=== PATIENT | female | born 1955 | race Caucasian/White ===

== ENCOUNTER 2016-11-02 11:04 | Emergency (ER) | payer OTHER ==
[2016-11-02 11:17] VITALS: BP 148/99
[2016-11-02] MEDS ORDERED: Lidocaine 1% 20 ML MDV INJECT ONE (11:42)
[2016-11-02] MEDS ORDERED: Bacitracin Oint 1 GM U/D Packet TOP ONE (12:16)
--- NOTE | 2016-11-02 12:17 | EDM.PDOC ---
ED HPI GENERAL MEDICAL PROBLEM - General Chief Complaint: Laceration Stated Complaint: LT THUMB/HAND SUTURES Time Seen by Provider: 11/02/16 12:00 Source of Information: Reports: Patient History Limitations: Reports: No Limitations - History of Present Illness INITIAL COMMENTS - FREE TEXT/NARRATIVE: Cherry is a 60 year old female who presents to the ED today with c/o hand laceration after trying to stop boat handle pulled from spinning. Patient denies any other injury, DT is up to date. - Related Data Allergies Allergy/AdvReac Type Severity Reaction Status Date / Time dexlansoprazole Allergy Severe Difficulty Verified 11/02/16 11:20 [From Dexilant] Breathing Latex, Natural Rubber Allergy Intermediate Rash Verified 11/02/16 11:21 Sulfa (Sulfonamide Allergy Mild Vomiting Verified 11/02/16 11:19 Antibiotics) Home Meds: Home Meds Ranitidine [Zantac] 150 mg PO BEDTIME 11/02/16 [History] Past Medical History HEENT History: Reports: Allergic Rhinitis Respiratory History: Reports: Asthma Musculoskeletal History: Reports: Osteoarthritis Neurological History: Reports: Headaches, Chronic, Migraines Dermatologic History: Reports: Psoriasis Social & Family History - Tobacco Use Smoking Status *Q: Never Smoker Second Hand Smoke Exposure: No - Caffeine Use Caffeine Use: Reports: Tea - Recreational Drug Use Recreational Drug Use: No ED ROS GENERAL - Review of Systems Review Of Systems: ROS reveals no pertinent complaints other than HPI. ED EXAM, SKIN/RASH Exam: See Below Exam Limited By: No Limitations General Appearance: Alert, WD/WN, No Apparent Distress Head: Atraumatic Respiratory/Chest: No Respiratory Distress Cardiovascular: Regular Rate, Rhythm Extremities: Normal Inspection, Normal Range of Motion, Normal Capillary Refill Neurological: Alert, Oriented Psychiatric: Normal Affect, Normal Mood Skin: Warm, Dry, Other ( 3 cm V shaped laceration to right hand, dorsal aspect just beneath right thumb, no tendon involvement, no foreign body) ED SKIN PROCEDURES - Laceration/Wound Repair Right Upper Hand Appearance: Subcutaneous Distal NVT: Neuro & Vascular Intact, No Tendon Injury Anesthetic Type: Local Local Anesthesia - Lidocaine (Xylocaine): 1% Plain Skin Prep: Chlorhexidine (Hibiciens), Saline Exploration/Debridement/Repair: Wound Explored, No Foreign Material Found Closed with: Sutures Suture Size: other (5-0) Suture Type: Prolene # of Sutures: 9 Course - Vital Signs Text/Narrative:: Cherry is a delightful 60 year old female who presents to the ED today with right hand laceration, please refer to HPI and focused exam. Patient's DT is up to date, laceration repair done without difficulty, patient tolerated well. Bacitracin and bandage applied, wound care discussed in detail as well as reasons to return to the ED. Patient agreeable and discharged in stable condition. Last Recorded V/S: Last Vital Signs Temp 35.4 C 11/02/16 11:16 Pulse 87 11/02/16 11:16 Resp 16 11/02/16 11:16 BP 148/99 H 11/02/16 11:16 Pulse Ox 92 L 11/02/16 11:16 - Orders/Labs/Meds Meds: Medications Discontinued Medications Generic Name Dose Route Start Last Admin Trade Name Loki PRN Reason Stop Dose Admin Bacitracin 1 dose 11/02/16 12:16 Bacitracin Oint 1 Gm TOP 11/02/16 12:17 ONETIME ONE Lidocaine HCl 20 ml 11/02/16 11:42 Xylocaine 1% INJECT 11/02/16 11:43 ONETIME ONE Departure - Departure Time of Disposition: 12:30 Disposition: Home, Self-Care 01 Condition: Good Clinical Impression: Laceration of hand Qualifiers: Encounter type: initial encounter Foreign body presence: without foreign body Laterality: right Qualified Code(s): S61.411A - Laceration without foreign body of right hand, initial encounter - Discharge Information Instructions: Laceration Care, Adult, [id number], Stitches, [place], or Adhesive Wound Closure, [id number] Referrals: PCP,None [Primary Care Provider] - Forms: ED Department Discharge Additional Instructions: Cherry, Sutures can be removed in 7-10 days. It was a pleasure meeting you, enjoy the rest of your weekend.
== END 2016-11-02 12:35 | disposition home or self-care (01) ==
LOC: JP.ED 11:04
DX: S61.411A Laceration without foreign body of right hand, initial encounter (principal); J45.909 Unspecified asthma, uncomplicated; M19.90 Unspecified osteoarthritis, unspecified site; G43.909 Migraine, unspecified, not intractable, without status migrainosus; Z88.8 Allergy status to other drugs, medicaments and biological substances; Z88.2 Allergy status to sulfonamides; Z91.040 Latex allergy status; W45.8XXA Other foreign body or object entering through skin, initial encounter
CPT/HCPCS: 12002; 99283-25